=== PATIENT | female | born 1960 | race Caucasian/White ===

== ENCOUNTER 2017-06-21 12:07 | Emergency (ER) | payer MEDICAID ==
[~2017-06-21] VITALS: Ht 165.1 cm; Wt 61.2 kg
[~2017-06-21 12:07] MED LIST: AEROCHAMBER1 DEV IH; ALBUTEROL2 PUFFS/17 IN; BACTRIM DS 8001 TAB PO; BENZONATATE200 MG PO; CIPROFLOXACIN500 MG PO; FERROUS SULFAT325 M2 PO; LACTULOSE20 GM/30 M PO; POTASSIUM CHLO10 ME3 PO; PROCTOFOAM-HC 11 FOA RC; VICODIN 7.5/501 EACH PO; VITAMIN B COMPL1 CAP PO; VITAMIN D1000 IU PO; ZINC SULFATE 2220 MG PO; ZOFRAN ODT4 MG PO
[2017-06-21] MEDS ORDERED: PANTOPRAZOLE SO40 M1 PO (12:16)
[2017-06-21] MEDS ORDERED: LACTULOSE10 GM/15 M PO (12:17)
--- OUTSIDE RECORDS SUMMARY | 2017-06-21 12:17 | External Medical Summary Rpt | CCD ---
Demographics Preferred Language Turkmen Marital Status Unknown Mandaeism Affiliation Unknown Race Unknown Ethnic Group Unknown Author Author , NATASHA KAUR Address Unknown Phone Immunization No patient found.
--- OUTSIDE RECORDS SUMMARY | 2017-06-21 12:17 | External Medical Summary Rpt | CCD ---
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 9% SO PETRA TI ON Sa 63 01 0 No li 80 -0 ne 70 8- Lo 10 20 ng Fl 07 14 er us 5 h Ac 10 ti ML ve Sy ri ng e Po 00 01 0 No ta 24 -0 ss 50 8- Lo iu 05 20 ng m 80 14 er Ch 1 lo Ac ri ti de ve 20 ME Q Ta bl e Ib 62 01 0 No up 58 -0 ro 40 8- Lo fe 74 20 ng n 60 14 er 40 1 0M Ac G ti Ta ve bl et CE 00 01 0 No FT 40 -0 RI 97 8- Lo AX 33 20 ng ON 30 14 er E 4 1 Ac GM ti ve AL As 00 05 1 No pi 18 -0 ri 20 7- Lo n 44 20 ng EC 80 13 er 1 32 Ac 5M ti G ve Ta bl et Vital Signs 07-27-2013 16:27 Name Value Interpretat Reference Comment ion Range Body 98.9 [degF] Temperature BP 86 mm[Hg] Diastolic BP Systolic 108 mm[Hg] Heart 63 /min Rate/Pulse O2% 97 % Respiratory 20 /min Rate 07-27-2013 14:09 Name Value Interpretat Reference Comment ion Range Body 101.9 Temperature [degF] BP 68 mm[Hg] Diastolic BP Systolic 121 mm[Hg] Heart 86 /min Rate/Pulse O2% 99 % Respiratory 20 /min Rate 11-24-2012 08:00 Name Value Interpretat Reference Comment ion Range Body 97.6 [degF] Temperature BP 72 mm[Hg] Diastolic BP Systolic 106 mm[Hg] Heart 76 /min Rate/Pulse Respiratory 16 /min Rate 11-24-2012 04:00 Name Value Interpretat Reference Comment ion Range O2% 100 % 11-23-2012 19:35 Name Value Interpretat Reference Comment ion Range O2% 100 % 11-23-2012 15:58 Name Value Interpretat Reference Comment ion Range Body 98.5 [degF] Temperature BP 67 mm[Hg] Diastolic BP Systolic 126 mm[Hg] Heart 69 /min Rate/Pulse Height 165.10 cm Respiratory 16 /min Rate Weight 130 [lb_av] Measured Weight 58.968 kg Measured 11-19-2012 12:47 Name Value Interpretat Reference Comment ion Range BP 72 mm[Hg] Diastolic BP Systolic 115 mm[Hg] Heart 72 /min Rate/Pulse O2% 100 % Respiratory 20 /min Rate Results Labs Lab Lab Date Result Refere Interp Status Commen Order Detail nces retati t Range on Differential panel, method unspecified - (03-10-2017 16:22) Anisocy 1+ complet tosis 017 ed [Presen 16:22 ce] in Blood Hypochr 1+ complet omia 017 ed [Presen 16:22 ce] in Blood LYMPH 30 % 10% - Normal complet 017 50% ed 16:22 Blood 1+ complet smear 017 ed finding 16:22 [Identi fier] in Blood by Light microsc opy Platele MARKED complet ts 017 DECREAS ed [Presen 16:22 E ce] in Blood by Light microsc opy COMPREHENSIVE METABOLIC PANEL (07-27-2013 13:13) Glucose 79 74-106 complet 014 mg/dL ed Bld-mCn 13:13 c BUN 13 7-18 complet Bld-mCn 014 mg/dL ed c 13:13 Creat 1.1 0.6-1.0 complet SerPl-m 014 mg/dL ed Cnc 13:13 Creat 53 50-200 complet Cl 014 ML/MIN ed predict 13:13 ed SerPl C-G-vRa te GFR/BSA 52 59- complet .pred 014 ML/MIN ed SerPl 13:13 Schwart z-vRate Sodium 134 136-145 complet SerPl-s 014 mmoL/L ed Cnc 13:13 Potassi 3.0 3.5-5.1 complet um 014 mmoL/L ed SerPl-s 13:13 Cnc Chlorid 98 98-107 complet e 014 mmoL/L ed SerPl-s 13:13 Cnc CO2 26 21.0-32 complet SerPl-s 014 mmoL/L .0 ed Cnc 13:13 Calcium 8.7 8.5-10. complet 014 mg/dL 1 ed SerPl-m 13:13 Cnc Prot 8.3 6.4-8.2 complet SerPl-m 014 gm/dL ed Cnc 13:13 Albumin 3.5 3.4-5.0 complet 014 gm/dL ed SerPl-m 13:13 Cnc Globuli 2 4.8 1.3-3.2 complet n 014 gm/dL ed Ser-mCn 13:13 c Albumin 2 0.7 UNK 1.1-1.8 complet /Glob 014 ed SerPl-m 13:13 Rto Bilirub 1.9 0.2-1.0 complet 014 mg/dL ed SerPl-m 13:13 Cnc AST 34 U/L 15-37 complet SerPl-c 014 ed Cnc 13:13 ALT 45 U/L 30-65 complet SerPl-c 014 ed Cnc 13:13 ALP 172 U/L 50-136 complet SerPl-c 014 ed Cnc 13:13 THYROID STIM HORMONE (07-27-2013 13:13) THYROID 07-27-2 0.75 0.358-3 complet STIM 014 uIU/ml .740 ed HORMONE 13:13 CBC with AUTO DIFF (07-27-2013 13:13) WBC # 08-2 3.1 4.8-10. complet Bld 014 K/MM3 8 ed Auto 13:13 RBC # 08-2 3.75 4.2-5.4 complet Bld 014 M/mm3 ed Auto 13:13 Hgb 07-27-2 9.6 12.2-16 complet Bld-mCn 014 g/dL .2 ed c 13:13 Hct Fr 29.8 % 37.0-47 complet Bld 014 .0 ed 13:13 MCV RBC 79.6 fl 82.2-97 complet 014 .8 ed 13:13 MCH RBC 2 25.5 pg 27-31.2 complet Qn 014 ed Auto 13:13 MEAN 2 32.0 31.8-35 complet CORPUSC 014 g/dl .4 ed ULAR 13:13 HGB CONC RDW RBC 07-27-2 17.3 % 11.5-17 complet Auto 014 .5 ed 13:13 Platele 45 142-424 Low complet t Bld 014 K/mm3 alert ed Ql 13:13 Manual MEAN 7.8 fl 7.4-10. complet PLATELE 014 4 ed T 13:13 VOLUME Granulo 07-27-2 79.9 % 37.0-80 complet cytes 014 .0 ed Fr Bld 13:13 Auto LYMPH % 08-2 15.9 % 10-50.0 complet 014 ed 13:13 Monocyt 08-2 3.8 % 1.7-9.3 complet es Fr 014 ed Bld 13:13 Auto Eosinop -08-2 0.3 % 0.1-12. complet hil Fr 014 0 ed Bld 13:13 Auto Basophi 08-2 0.1 % 0.1-2.0 complet ls Fr 014 ed Bld 13:13 Auto Granulo 08-2 2.5 1.8-7.8 complet cytes # 014 K/mm3 ed Bld 13:13 Auto Lymphoc 08-2 0.5 0.7-4.5 complet ytes Fr 014 K/mm3 ed Bld 13:13 Auto Monocyt 08-2 0.1 0.1-1.0 complet es # 014 K/mm3 ed Bld 13:13 Auto Eosinop 08-2 0.0 0.0-0.4 complet hil # 014 K/mm3 ed Bld 13:13 Auto Basophi 08-2 0.0 0-0.2 complet ls # 014 K/MM3 ed Bld 13:13 Auto Ammonia Plas-sCnc (07-27-2013 13:13) Ammonia 20 11-32 complet 014 umoL/L ed Plas-sC 13:13 nc URINALYSIS/COMPLETE (07-27-2013 12:55) URINE YELLOW YELLOW complet COLOR 014 ed 12:55 URINE CLEAR CLEAR complet APPEARA 014 ed NCE 12:55 URINE NEGATIV NEG complet GLUCOSE 014 E ed - 12:55 DIPSTIC K URINE 1+ NEG complet BILIRUB 014 ed IN - 12:55 DIPSTIC K URINE 2+ NEG complet KETONE 014 mg/dL ed 12:55 URINE Greater 1.005-1 complet SPECIFI 014 than .030 ed C 12:55 or GRAVITY equal to 1.030 URINE TRACE-I NEG complet BLOOD 014 NTACT ed 12:55 URINE 6.0 UNK 5.0-8.5 complet PH 014 ed 12:55 URINE TRACE NEG complet PROTEIN 014 mg/dL ed - 12:55 DIPSTIC K URINE 1.0 NEG complet UROBILI 014 E.U./dL ed NOGEN - 12:55 DIPSTIC K URINE NEGATIV NEG complet NITRATE 014 E ed - 12:55 DIPSTIC K URINE 1+ NEG complet LEUK 014 ed ESTERAS 12:55 E URINE OCC 0 complet RBC 014 rbc/hpf ed 12:55 URINE TNTC O complet WBC 014 wbc/hpf ed 12:55 URINE 10-20 0-5 complet SQUAMOU 014 #/hpf ed S CELLS 12:55 URINE 2+ O complet BACTERI 014 ed A 12:55 URINE 1+ OCC complet MUCUS 014 ed 12:55 BASIC METABOLIC PANEL (11-24-2012 06:10) Glucose 76 74-106 complet 013 mg/dL ed Bld-mCn 06:10 c BUN 4 mg/dL 7-18 complet Bld-mCn 013 ed c 06:10 Creat 0.7 0.6-1.0 complet SerPl-m 013 mg/dL ed Cnc 06:10 ESTIMAT 88 50-200 complet ED 013 ML/MIN ed CREATIN 06:10 INE CLEARAN CE GFR 88 59- complet (ESTIMA 013 ML/MIN ed DANIEL) 06:10 Sodium 138 136-145 complet SerPl-s 013 mmoL/L ed Cnc 06:10 Potassi 3.5 3.5-5.1 complet um 013 mmoL/L ed SerPl-s 06:10 Cnc Chlorid 105 98-107 complet e 013 mmoL/L ed SerPl-s 06:10 Cnc CO2 28 21.0-32 complet SerPl-s 013 mmoL/L .0 ed Cnc 06:10 Calcium 8.3 8.5-10. complet 013 mg/dL 1 ed SerPl-m 06:10 Cnc CBC with AUTO DIFF (11-24-2012 06:10) WBC # 05-08-2 1.8 4.8-10. Low complet Bld 013 K/MM3 8 alert ed Auto 06:10 RBC # 05-08-2 4.07 4.2-5.4 complet Bld 013 M/mm3 ed Auto 06:10 Hgb 05-08-2 9.2 12.2-16 complet Bld-mCn 013 g/dL .2 ed c 06:10 Hct Fr -08-2 30.1 % 37.0-47 complet Bld 013 .0 ed 06:10 MCV RBC 05-08-2 73.8 fl 82.2-97 complet 013 .8 ed 06:10 MCH RBC -08-2 22.6 pg 27-31.2 complet Qn 013 ed Auto 06:10 MEAN -08-2 30.7 31.8-35 complet CORPUSC 013 g/dl .4 ed ULAR 06:10 HGB CONC RDW RBC -08-2 18.6 % 11.5-17 complet Auto 013 .5 ed 06:10 Platele 05-08-2 68 142-424 complet t Bld 013 K/mm3 ed Ql 06:10 Manual MEAN -08-2 8.1 fl 7.4-10. complet PLATELE 013 4 ed T 06:10 VOLUME Granulo 05-08-2 59.9 % 37.0-80 complet cytes 013 .0 ed Fr Bld 06:10 Auto LYMPH % 05-08-2 32.8 % 10-50.0 complet 013 ed 06:10 Monocyt 05-08-2 4.6 % 1.7-9.3 complet es Fr 013 ed Bld 06:10 Auto Eosinop 05-08-2 2.4 % 0.1-12. complet hil Fr 013 0 ed Bld 06:10 Auto Basophi 05-08-2 0.3 % 0.1-2.0 complet ls Fr 013 ed Bld 06:10 Auto Granulo 05-08-2 1.1 1.8-7.8 complet cytes # 013 K/mm3 ed Bld 06:10 Auto Lymphoc 05-08-2 0.6 0.7-4.5 complet ytes Fr 013 K/mm3 ed Bld 06:10 Auto Monocyt 05-08-2 0.1 0.1-1.0 complet es # 013 K/mm3 ed Bld 06:10 Auto Eosinop -08-2 0.0 0.0-0.4 complet hil # 013 K/mm3 ed Bld 06:10 Auto Basophi 08-2 0.0 0-0.2 complet ls # 013 K/MM3 ed Bld 06:10 Auto COMPREHENSIVE METABOLIC PANEL (11-23-2012 17:10) Glucose 11-23-2 72 74-106 complet 013 mg/dL ed Bld-mCn 17:10 c BUN 11-23-2 4 mg/dL 7-18 complet Bld-mCn 013 ed c 17:10 Creat 11-23-2 0.7 0.6-1.0 complet SerPl-m 013 mg/dL ed Cnc 17:10 ESTIMAT 11-23-2 88 50-200 complet ED 013 ML/MIN ed CREATIN 17:10 INE CLEARAN CE GFR 88 59- complet (ESTIMA 013 ML/MIN ed DANIEL) 17:10 Sodium 11-23-2 135 136-145 complet SerPl-s 013 mmoL/L ed Cnc 17:10 Potassi 2 3.2 3.5-5.1 complet um 013 mmoL/L ed SerPl-s 17:10 Cnc Chlorid 11-23-2 102 98-107 complet e 013 mmoL/L ed SerPl-s 17:10 Cnc CO2 11-23-2 25 21.0-32 complet SerPl-s 013 mmoL/L .0 ed Cnc 17:10 Calcium 07-2 8.8 8.5-10. complet 013 mg/dL 1 ed SerPl-m 17:10 Cnc Prot 07-2 7.2 6.4-8.2 complet SerPl-m 013 gm/dL ed Cnc 17:10 Albumin 07-2 3.3 3.4-5.0 complet 013 gm/dL ed SerPl-m 17:10 Cnc Globuli 07-2 3.9 1.3-3.2 complet n 013 gm/dL ed Ser-mCn 17:10 c Albumin 07-2 0.8 UNK 1.1-1.8 complet /Glob 013 ed SerPl-m 17:10 Rto Bilirub 05-07-2 0.8 0.2-1.0 complet 013 mg/dL ed SerPl-m 17:10 Cnc AST 05-07-2 32 U/L 15-37 complet SerPl-c 013 ed Cnc 17:10 ALT 05-07-2 34 U/L 30-65 complet SerPl-c 013 ed Cnc 17:10 ALP 05-07-2 105 U/L 50-136 complet SerPl-c 013 ed Cnc 17:10 CBC with AUTO DIFF (11-23-2012 17:10) WBC # 05-07-2 1.6 4.8-10. Low complet Bld 013 K/MM3 8 alert ed Auto 17:10 RBC # 05-07-2 3.34 4.2-5.4 complet Bld 013 M/mm3 ed Auto 17:10 Hgb 05-07-2 7.0 12.2-16 Low complet Bld-mCn 013 g/dL .2 alert ed c 17:10 Hct Fr 07-2 23.3 % 37.0-47 Low complet Bld 013 .0 alert ed 17:10 MCV RBC 05-07-2 69.9 fl 82.2-97 complet 013 .8 ed 17:10 MCH RBC -07-2 20.9 pg 27-31.2 complet Qn 013 ed Auto 17:10 MEAN -07-2 29.8 31.8-35 complet CORPUSC 013 g/dl .4 ed ULAR 17:10 HGB CONC RDW RBC -07-2 18.4 % 11.5-17 complet Auto 013 .5 ed 17:10 Platele -07-2 73 142-424 complet t Bld 013 K/mm3 ed Ql 17:10 Manual MEAN -07-2 7.7 fl 7.4-10. complet PLATELE 013 4 ed T 17:10 VOLUME Granulo -07-2 73.6 % 37.0-80 complet cytes 013 .0 ed Fr Bld 17:10 Auto LYMPH % 05-07-2 19.4 % 10-50.0 complet 013 ed 17:10 Monocyt 05-07-2 5.6 % 1.7-9.3 complet es Fr 013 ed Bld 17:10 Auto Eosinop -07-2 1.1 % 0.1-12. complet hil Fr 013 0 ed Bld 17:10 Auto Basophi 05-07-2 0.3 % 0.1-2.0 complet ls Fr 013 ed Bld 17:10 Auto Granulo -07-2 1.2 1.8-7.8 complet cytes # 013 K/mm3 ed Bld 17:10 Auto Lymphoc -07-2 0.3 0.7-4.5 complet ytes Fr 013 K/mm3 ed Bld 17:10 Auto Monocyt -07-2 0.1 0.1-1.0 complet es # 013 K/mm3 ed Bld 17:10 Auto Eosinop -07-2 0.0 0.0-0.4 complet hil # 013 K/mm3 ed Bld 17:10 Auto Basophi 11-23-2 0.0 0-0.2 complet ls # 013 K/MM3 ed Bld 17:10 Auto Encounters Encounter Start End Date Code Location Performer Type Date Emergency SAMUEL ALCARAZ DO (ER) 4 12:51 4 16:36 [facility] Inpatient GEORGETTE Diehl MD ([place]) 3 15:42 3 09:20 [facility] Emergency SAMUEL Sun (ER) 3 12:41 3 12:53 [facility] Ryan Wright
--- OUTSIDE RECORDS SUMMARY | 2017-06-21 12:17 | External Medical Summary Rpt | CCD ---
Demographics Preferred Language Irish Marital Status Unknown Presybeterian Affiliation Unknown Race Unknown Ethnic Group Unknown Author Author NATASHA Address Unknown Phone [email or web address] Purpose Continuity of Care Document - through 2016
--- OUTSIDE RECORDS SUMMARY | 2017-06-21 12:17 | External Medical Summary Rpt | CCD ---
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
--- OUTSIDE RECORDS SUMMARY | 2017-06-21 12:17 | External Medical Summary Rpt | CCD ---
Demographics Preferred Language Romansh Marital Status Unknown Evangelical Affiliation Unknown Race Unknown Ethnic Group Unknown Author Author , NATASHA KAUR Address Unknown Phone Immunization No patient found.
--- OUTSIDE RECORDS SUMMARY | 2017-06-21 12:17 | External Medical Summary Rpt | CCD ---
Demographics Preferred Language German Marital Status Unknown Moravian Affiliation Unknown Race Unknown Ethnic Group Unknown Author Author NATASHA Address Unknown Phone [email or web address] Purpose Continuity of Care Document - through 2016
--- OUTSIDE RECORDS SUMMARY | 2017-06-21 12:17 | External Medical Summary Rpt ---
Author Author NATASHA Production, [employer] Organization [employer] Address Unknown Phone Unavailable Results CBC W Auto Differential panel in Blood Observa Value Referen Units Interpr Notes Date tion ce etation Range Basophils 0 - 0.2 K/MM3 Normal No Mar 10 informati 2017 4:22 [#/volume on in PM ] in source Blood by data Automated count Basophils 0.1 - 2.0 % Normal No Mar 10 / informati 2017 4:22 leukocyte on in PM s in source Blood by data Automated count Eosinophi 0.0 - 0.4 K/mm3 Normal No Mar 10 ls informati 2017 4:22 [#/volume on in PM ] in source Blood by data Automated count Eosinophi 0.1 - % Normal No Mar 10 ls/100 12.0 informati 2017 4:22 leukocyte on in PM s in source Blood by data Automated count Granulocy 1.8 - 7.8 K/mm3 Low No Mar 10 eamon informati 2017 4:22 [#/volume on in PM ] in source Blood by data Automated count Granulocy 37.0 - % Normal No Mar 10 eamon/100 80.0 informati 2017 4:22 leukocyte on in PM s in source Blood by data Automated count Hematocri 37.0 - % Low No Mar 10 t [Volume 47.0 informati 2017 4:22 on in PM Fraction] source of Blood data Hemoglobi 12.2 - g/dL Low No Mar 10 n 16.2 informati 2017 4:22 [Mass/vol on in PM ume] in source Blood data Lymphocyt 0.7 - 4.5 K/mm3 Normal No Mar 10 es informati 2017 4:22 [#/volume on in PM ] in source Unspecifi data ed specimen by Automated count Lymphocyt 10 - 50.0 % Normal No Mar 10 es informati 2017 4:22 [#/volume on in PM ] in source Unspecifi data ed specimen by Automated count Erythrocy 27 - 31.2 pg Low No Mar 10 te mean informati 2017 4:22 corpuscul on in PM ar source hemoglobi data n [Entitic mass] Erythrocy 31.8 - g/dl Normal No Mar 10 te mean 35.4 informati 2017 4:22 corpuscul on in PM ar source hemoglobi data n concentra tion [Mass/vol ume] by Automated count Erythrocy 82.2 - fl Low No Mar 10 te mean 97.8 informati 2016 4:22 corpuscul on in PM ar volume source [Entitic data volume] by Automated count Monocytes 0.1 - 1.0 K/mm3 Normal No Mar 10 informati 2016 4:22 [#/volume on in PM ] in source Blood by data Automated count Monocytes 1.7 - 9.3 % Normal No Mar 10 /100 informati 2016 4:22 leukocyte on in PM s in source Blood by data Automated count Platelet 7.4 - fl Normal Mar 10 mean 10.4 informati 2017 4:22 volume on in PM [Entitic source volume] data in Blood by Automated count Platelets 142 - 424 K/mm3 Low No Mar 10 informati 2017 4:22 [#/volume on in PM ] in source Blood data Erythrocy 4.2 - 5.4 M/mm3 Normal No Mar 10 eamon informati 2017 4:22 [#/volume on in PM ] in source Amniotic data fluid Erythrocy 11.5 - % Normal Mar 10 te 17.5 informati 2016 4:22 distribut on in PM ion width source [Entitic data volume] by Automated count Leukocyte 4.8 - K/MM3 Low No Mar 10 s 10.8 informati 2016 4:22 [#/volume on in PM ] in source Blood data Differential panel, method unspecified - Observa Value Referen Units Interpr Notes Date tion ce etation Range Anisocy 1+ No No No No Mar 10 tosis informa informa informa informa 2016 [Presen tion in tion in tion in tion in 4:22 PM ce] in source source source source Blood data data data data Hypochr 1+ No No No No Mar 10 omia informa informa informa informa 2016 [Presen tion in tion in tion in tion in 4:22 PM ce] in source source source source Blood data data data data LYMPH 30 10 - 50 % Normal Mar 10 inform2016 tion in 4:22 PM source data Blood 1+ No No No No Mar 10 smear informa informa informa informa 2017 finding tion in tion in tion in tion in 4:22 PM source source source source [Identi data data data data fier] in Blood by Light microsc opy Monocytes 2 - 9 % Normal No Mar 10 /100 informati 2017 4:22 leukocyte on in PM s in source Blood by data Automated count Platele MARKED No No No No Mar 10 ts DECREAS informa informa informa informa 2017 [Presen E tion in tion in tion in tion in 4:22 PM ce] in source source source source Blood data data data data by Light microsc opy Neutrophi 42 - 76 % Normal No Mar 10 ls informati 2016 4:22 [#/volume on in PM ] in source Blood by data Automated count Cells No #CELLS No No Mar 10 Counted informati informati informati 2017 4:22 Total [#] on in on in on in PM in Blood source source source data data data Comprehensive metabolic 2000 panel in Serum or Plasma Observa Value Referen Units Interpr Notes Date tion ce etation Range Albumin/G 1.1 - 1.8 No Low No Mar 10 lobulin informati informati 2017 4:22 [Mass on in on in PM ratio] in source source Serum or data data Plasma Albumin 3.4 - 5.0 gm/dL Normal No Mar 10 [Mass/vol informati 2017 4:22 ume] in on in PM Serum or source Plasma data Alkaline 46 - 116 U/L High No Mar 10 phosphata informati 2017 4:22 se on in PM [Enzymati source c data activity/ volume] in Serum or Plasma Bilirubin 0.2 - 1.0 mg/dL Normal No Mar 10 .total informati 2017 4:22 [Mass/vol on in PM ume] in source Serum or data Plasma Urea 7 - 18 mg/dL Normal No Mar 10 nitrogen informati 2017 4:22 [Mass/vol on in PM ume] in source Serum or data Plasma Calcium 8.5 - mg/dL Normal No Mar 10 [Mass/vol 10.1 informati 2017 4:22 ume] in on in PM Serum or source Plasma data Chloride 98 - 107 mmoL/L Normal No Mar 10 [Moles/vo informati 2017 4:22 lume] in on in PM Serum or source Plasma data Carbon 21.0 - mmoL/L Normal No Mar 10 dioxide, 32.0 informati 2016 4:22 total on in PM [Moles/vo source lume] in data Serum or Plasma Creatinin 0.55 - mg/dL Normal No Mar 10 e 1.02 informati 2017 4:22 [Mass/vol on in PM ume] in source Serum or data Plasma Estimated 59- ML/MIN No REFERENCE Mar 10 informati RANGE: 2017 4:22 glomerula on in >60 PM r source ML/MIN/1. filtratio data 73 SQUARE n rate METERSIf (GF this patient is -A merican, then multiply theresult by 1.210. Globulin 1.3 - 3.2 gm/dL High No Mar 10 [Mass/vol informati 2016 4:22 ume] in on in PM Serum source data Glucose 74 - 106 mg/dL Normal No Mar 10 [Mass/vol informati 2016 4:22 ume] in on in PM Serum or source Plasma data Potassium 3.5 - 5.1 mmoL/L Normal No Mar 10 inform2016 4:22 [Moles/vo on in PM lume] in source Serum or data Plasma Sodium 136 - 145 mmoL/L Normal No Mar 10 [Moles/vo informati 2016 4:22 lume] in on in PM Serum or source Plasma data Aspartate 15 - 37 U/L Normal No Mar 10 informati 2016 4:22 aminotran on in PM sferase source [Enzymati data c activity/ volume] in Serum or Plasma Alanine 12 - 78 U/L Normal No Mar 10 aminotran informati 2016 4:22 sferase on in PM [Enzymati source c data activity/ volume] in Serum or Plasma Protein 6.4 - 8.2 gm/dL High No Mar 10 [Mass/vol informati 2016 4:22 ume] in on in PM Serum or source Plasma data Ammonia [Mass/volume] in Unspecified specimen Observa Value Referen Units Interpr Notes Date tion ce etation Range Ammonia 19 - 54 umoL/L Low No Mar 10 [Mass/vol informati 2017 4:22 ume] in on in PM Unspecifi source ed data specimen
[2017-06-21 12:37] LABS: LYMPH # 0.6 K/mm3 (0.7-4.5)
--- NOTE | 2017-06-21 12:44 | Emergency Room Report ---
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 N Clinical Suspician of Infection? N Mental Status: 1 - Regular (Normal Baseline) Sepsis Risk:Low Sepsis Risk Have you (or family members/close friends) recently traveled outside the [place]? N If Yes, where/when: Have you had exposure to infectious disease within the past month? TB? Other? Specify: Source patient, RN notes reviewed, family, old records Exam Limitations no limitations Comment pt with episodes x 2 of inc hr which last sev hrs and no chest pain or syncope - at baseline now Cardiac Chest Pain Chest pain indicative of cardiac No Timing/Duration this evening Severity moderate ALLERGIES Coded Allergies: No Known Allergies (06/21/17) Home Medications Active Scripts HYDROCORTISONE/PRAMOXINE (Proctofoam-Hc 1%-1% Foam) 1 gm RC QID #1 EACH Ref 2 Prov: 11/07/16 Reported Medications Pantoprazole Sodium 40 MG PO DAILY #30 Lactulose (Lactulose) 10 GM PO DAILY #450 Lactulose (Lactulose 20GM/30ML UD) 30 ML PO QHS History Medical History General CAD? No Angina: No ME: No Hypertension? No Hyperlipidemia? No CHF? No DVT? No PE? No COPD? No Asthma? No Anemia? No GERD? No Gastric ulcers? No GI Bleed? Yes Hernia? No Thyroid Problems? No Hypothyroidism? No CVA? No Seizures? No Diabetes? No Insulin Dependent: No Insulin Pump: No Home FSBS? No Renal Insuffiency? No End Stage Renal Disease? No UTI? Yes Stones? No BPH? No GB Disease: No Nephritic Syndrome? No Asplenia? No Hepatitis? Yes Sickle Cell Disease? No Arthritis? No Migraines? No Cataracts? No Glaucoma? No MRSA? No HIV? No TB? No Anxiety? No Depression? No Cancer? No More? 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 Respiratory denies cough, denies shortness of breath, denies wheezing Cardiovascular see HPI, denies chest pain, palpitations, denies syncope Gastrointestinal denies abdominal pain, denies diarrhea, denies vomiting Genitourinary denies: dysuria, frequency, hesitancy, hematuria. Musculoskeletal denies back pain, denies joint pain, denies joint swelling, denies neck pain Skin denies rash Psychiatric/Neurological denies headache, denies seizure Physical Exam Vital Signs Vital Signs Date Time Temp Pulse Resp B/P Pulse O2 O2 Flow FiO2 Ox Delivery Rate 06/21 1210 98.1 78 18 149/75 75 - WBC >12,000 or <4,000 or 10% bands? 2 or more SIRS Criteria Met? B/P:114/64 MAP:99 Creatinine >2.0? UA output<0.5ml/kg/hr for 2 hrs? Platelet count >100,000? Lactate >2.0mmol/1? INR >1.2 or PTT > than 60 sec? Evidence of Organ Dysfunction? Provider documented clinical suspician of infection? N Sepsis Criteria Count: 0 Sepsis Risk: Low Sepsis Risk General Appearance no apparent distress Eye Exam - bilateral eye PERRL, bilateral eye EOMI Ear, Nose, Throat normal ENT inspection Neck supple Respiratory Status No: respiratory distress. Lung Sounds bilateral: lungs clear. 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 No Results/Orders Laboratory Tests 12/03/17 1215: Sodium 138, Potassium 3.1 L, Chloride 103, Carbon Dioxide 28, BUN 9, Creatinine 0.7, Estimated Creat Clear 86, Estimated GFR (MDRD) 86, Glucose 92, Calcium 8.9, Magnesium 1.8, Total Bilirubin 0.9, AST 51 H, ALT 32, Alkaline Phosphatase 133 H, Creatine Kinase 335 H, CK-MB (CK-2) Rel Index 0.1, CK and CKMB Interp 0.5, Troponin I < 0.02, Total Protein 8.0, Albumin 3.6, Globulin 4.4 H, Albumin/ Globulin Ratio 0.8 L, TSH 2.66, Free T4 Index 7.6, Thyroxine (T4) 9.9, T3 Uptake 31, WBC 2.3 L, RBC 3.43 L, Hgb 8.0 L, Hct 26.7 L, MCV 77.9 L, RDW 14.0, Plt Count 92 L, MPV 11.6 H, Gran % 66.9, Gran # 1.6 L, Total Counted 50 , Lymphocytes % 25.0, Monocytes % 5.6, Eosinophils % 1.6, Basophils % 0.9, Neutrophils 68, Lymphocytes (Manual) 20, Lymphocytes # 0.6 L, Monocytes (Manual ) 10 H, Monocytes # 0.1, Eosinophils # 0.0, Eosinophils # (Manual) 2, Basophils # 0.0, Platelet Estimate MOD DECREASE, PUBS MCHC 29.8 L, MCH 23.2 L Current Medication Orders Sig/Wilber Start time Last Medication Dose Route Stop Time Status Admin Sodium Chloride 10 ML PRN PRN 06/21 1230 AC IV 06/22 1220 Orders Procedure Date/time Status ELECTROCARDIOGRAM REQUEST 06/21 1221 Active CHEST(2 VIEWS-NOT PORTABLE) 06/21 1221 Active IV SALINE LOCK 06/21 1221 Active THYROID PANEL 2 (WITH TSH) 06/21 1221 Complete MAGNESIUM 06/21 1221 Complete CBC WITH AUTO DIFF 06/21 1221 Complete CARDIAC ENZYMES 06/21 1221 Complete CHEM 12 PROFILE 06/21 1221 Complete DIFFERENTIAL-WBC 06/21 1215 Complete CM/EKG CM/motor tester Rhythm Normal Sinus Rhythm EKG non-spec. ST/Twave chgs XRAY/CT/US XRAY/CT/US XRAY chest XR interpretation by reviewed by me Xray Results normal/NAD Departure Departure Time of Disposition 1324 Disposition Still a Patient Clinical Impression Primary Impression: Rapid palpitations Secondary Impressions: Pancytopenia Condition STABLE Referrals Arvind Blandon MD (Family) discussed with dr blandon Patient Instructions DI for Palpitations Additional Instructions see dr blandon at 0830 Discharge Counseling Counseled pt/family regarding diagnosis, test results, follow up needs ED Critical Care Critical Care No at [id number]
[2017-06-21 13:02] LABS: BUN 9 mg/dL (7-18); FREE THYROXIN INDEX 7.6 ug/dl (5.93-13.13)
[2017-06-21 13:12] LABS: GFR (ESTIMATED) 86 ML/MIN (59-)
[2017-06-21 13:28] LABS: NEUTROPHILS 68 % (42-76)
[2017-06-21 13:48] VITALS: BP 114/64
--- NOTE | 2017-06-21 21:23 | RADIOLOGY REPORT PS360 ---
CHEST(2 VIEWS-NOT PORTABLE) Ordering physician: Bc Garza MD Age: 57 years Female INDICATION: chest symptomsIRREG HR arrhythmia PROCEDURE: CHEST(2 VIEWS-NOT PORTABLE) FINDINGS: Previous chest film from 10/01/2015 useful comparison. No significant new findings on today's study. Underlying COPD with hyperexpansion emphysematous changes most evident towards the apices degree on right. The apical pleural parenchymal scarring on right again noted and stable.. No pleural effusion. No pneumothorax. No active disease in the chest. The heart is normal in size. Justa and mediastinal structures appear stable unchanged. The slight dextrocurvature lower T-spine and levocurvature at the lumbar spine noted. . IMPRESSION ----- Stable chest Nothing definitely acute . Heart normal size. Normal pulmonary vascularity
[2017-07-08] MEDS ORDERED: PREDNISONE20 MG PO (19:44)
== END 2017-06-21 13:48 | disposition still patient (30) ==
LOC: ER 12:07
PROVIDERS: Emergency Medicine
DX: R00.2 Palpitations (principal); D61.818 Other pancytopenia

== ENCOUNTER → 2017-06-25 | Outpatient (CLI) | payer MEDICAID ==
[~2017-06-25] MED LIST changes: +LACTULOSE10 GM/15 M PO; +PANTOPRAZOLE SO40 M1 PO
--- NOTE | 2017-06-25 15:28 | RADIOLOGY REPORT PS360 ---
PROCEDURE: 2-D M-mode and color Doppler study INDICATIONS FOR THE TEST: Chest pain COPD Heart Murmur Tobacco Smoking Palpitations Fatigue Syncope Edema HypertensionXDiabetes Mellitus Rheumatic Fever SOBXDOEXObesity Hyperlipidemia Family History HD Additional History AF,TACHYCARDIA BUBBLE STUDY DONE KNOWN PFO FROM ECHO OF 03/08/09 PATIENT INFORMATION HEIGHT: 66 WEIGHT:134 GENDER: Female B/P:108/67 2-D/M-MODE INTERPRETATION: 2-D MEASUREMENTS OBSERVED VALUES IN CMS Right Ventricular Dimension (RVDd) 1.4 Interventricular Septum (Thickness)(IVsd) 1.1 Left Ventricular Internal Dimensions(LVIDd) 5.1 Left Ventricular Posterior Wall (Thickness)(LVPWd) 1.0 Aortic Root 3.3 Aortic Cusp Separation 2.1 Left Atrial Dimensions (LAD) 3.2 2D 1. Left atrium is mildly enlarged, left ventricle is normal size, left ventricle wall thickness is normal in size preserved left ventricular systolic function, visually estimated ejection fraction 55% with no obvious regional wall motion abnormality. 2. The right atrium and right ventricle are normal size and contractility. 3. The aortic valve is minimally thickened and fibrosed. 4. The mitral and tricuspid valve are structurally normal. 5. The pulmonic valve is poorly visualized. 6. No significant pericardial effusion noted. DOPPLER INTERROGATION: Doppler interrogation of the aortic, mitral and tricuspid valve reveals presence of mild mitral and tricuspid regurgitation, tricuspid and enteric velocity insufficient for calculation of the right ventricular systolic pressure, diastolic parameters are within normal range. Agitated saline contrast study is inconclusive for intracardiac shunt CONCLUSION: 1. Mildly enlarged left atrium, normal left ventricular size, visually estimated ejection fraction 55% with no obvious regional wall motion abnormality, diastolic within normal range. 2. Mild mitral and tricuspid regurgitation. 3. Agitated saline contrast study is inconclusive for intracardiac shunt.
== END ==
LOC: RT 10:03
DX: R00.0 Tachycardia, unspecified (principal)